=== PATIENT | male | born 1960 ===

== ENCOUNTER 2024-11-20 06:37 | Day surgery (SDC) | payer OTHER ==
[2024-11-18 14:05] VITALS: BP 132/78
[~2024-11-20] VITALS: Ht 180.3 cm; Wt 77.1 kg
[~2024-11-20 06:37] MED LIST: COZAAR25 MG PO; JANUMET 50-5001 EACH PO; SYNTHROID125 MCG PO; TOPROL XL25 M1 PO
[2024-11-20] MEDS ORDERED: CEFTRIAXONE SODIUM 2,000 MG VIAL ONE (11:05)
[2024-11-20] MEDS ORDERED: ENOXAPARIN SODIUM 40 MG/0.4 ML SYRINGE SUBCUTANEO ONE (11:06)
[2024-11-20] MEDS ORDERED: METRONIDAZOLE/SODIUM CHLORIDE 500 MG/100 ML PIGGYBACK IV ONE (11:57)
[2024-11-20] MEDS ORDERED: BUPIVACAINE HCL/MPF 0.5% 30ML VIAL ONE (11:57)
[2024-11-20] MEDS ORDERED: SUGAMMADEX SODIUM 200 MG/2 ML VIAL IV ONE (12:32)
[2024-11-20] MEDS ORDERED: PERCOCET 5-3251 EACH PO (14:02)
[2024-11-20] MEDS ORDERED: NEURONTIN300 MG PO (14:02)
[2024-11-20] MEDS ORDERED: POLY119PG PO (14:02)
[2024-11-20] MEDS ORDERED: CELEBREX200MG PO (14:02)
== END 2024-11-20 15:50 | disposition home or self-care (01) ==
LOC: CIR.AMB 06:37
PROVIDERS: ATTEND Surgery
DX: K40.90 Unilateral inguinal hernia, without obstruction or gangrene, not specified as recurrent (principal)
CPT/HCPCS: 49650; C1781

== ENCOUNTER 2025-01-28 08:44 | Emergency (ER) | payer OTHER ==
[~2025-01-28] VITALS: Ht 180.3 cm; Wt 78.0 kg
[~2025-01-28 08:44] MED LIST changes: +CELEBREX200MG PO; +NEURONTIN300 MG PO; +PERCOCET 5-3251 EACH PO; +POLY119PG PO
[2025-01-28] MEDS ORDERED: JANUMET 50-5001 EACH (09:15)
[2025-01-28] MEDS ORDERED: TOPROL XL25 M1 (09:15)
[2025-01-28] MEDS ORDERED: COZAAR25 MG (09:16)
[2025-01-28] MEDS ORDERED: SYNTHROID150 MCG (09:17)
[2025-01-28] MEDS ORDERED: ANTIVERT25 M2 PO (09:42)
[2025-01-28] MEDS ORDERED: MECLIZINE HCL 25 MG TABLET PO ONE ×2 (09:43→09:45)
== END 2025-01-28 09:55 | disposition home or self-care (01) ==
LOC: ER 08:44
DX: R42 Dizziness and giddiness (principal); Z91.013 Allergy to seafood; I48.91 Unspecified atrial fibrillation; E03.8 Other specified hypothyroidism; I10 Essential (primary) hypertension; E11.9 Type 2 diabetes mellitus without complications; Z79.84 Long term (current) use of oral hypoglycemic drugs